=== PATIENT | male | born 1995 | race Hispanic/Latino ===

== ENCOUNTER 2022-05-15 18:35 | Emergency (ER) | payer BC ==
[~2022-05-15] VITALS: Ht 177.8 cm; Wt 93.0 kg
[2022-05-15] MEDS ORDERED: ONDANSETRON HCL INJ 2MG/ML 2ML 2 MG/ML VIAL IV STA (19:00)
[2022-05-15] MEDS ORDERED: SODIUM CHLORIDE 0.9% 1000ML 1,000 ML IV ONE (19:00)
[2022-05-15 19:11] LABS: BASOPHILS % 0.1 % (0.0-1.0); EOSINOPHILS % 0.4 % (0.0-6.0); HEMATOCRIT 49.9 % (38.2-49.6); HEMOGLOBIN 16.8 g/dL (14.0-18.0); LYMPHOCYTES # (AUTO) 0.3 (1.0-3.2); LYMPHOCYTES % 3.1 % (18.0-39.1); MEAN CORPUSCULAR HEMOGLOBIN 29.4 pg (28-32); MEAN CORPUSCULAR HGB CONC 33.7 g/dL (31-35); MEAN CORPUSCULAR VOLUME 87.2 fL (81-99); MONOCYTES # (AUTO) 0.5 (0.2-0.8); MONOCYTES % 5.8 % (4.4-11.3); NEUTROPHILS # (AUTO) 7.3 (2.1-6.9); NEUTROPHILS % 90.4 % (38.7-80.0); PLATELET COUNT 240 x10e3/uL (140-360); RED BLOOD COUNT 5.72 x10e6/uL (4.3-5.7); RED CELL DISTRIBUTION WIDTH 12.1 % (11.7-14.4)
[2022-05-15 19:30] LABS: ALBUMIN 4.1 g/dL (3.5-5.0); ALBUMIN/GLOBULIN RATIO 1.1 (0.8-2.0); ANION GAP 13.2 mmol/L (8-16); CALCIUM 9.1 mg/dL (8.4-10.2); CREATININE, SERUM 1.12 mg/dL (0.72-1.25); POTASSIUM 4.2 mmol/L (3.5-5.1)
[2022-05-15] MEDS ORDERED: DICYCLOMINE HCL20 MG PO (20:57)
[2022-05-15] MEDS ORDERED: ONDANSETRON ODT4 MG PO (20:57)
[2022-05-15 20:58] LABS: CLARITY,URINE SL CLOUDY (CLEAR); COLOR,URINE AMBER (YELLOW); LEUKOCYTE ESTERASE ,URINE NEGATIVE (NEGATIVE); NITRITE,URINE NEGATIVE (NEGATIVE); PROTEIN,URINE DIPSTICK NEGATIVE (NEGATIVE)
[2022-05-15 20:59] LABS: KETONES,URINE TRACE (NEGATIVE); URINE UROBILINOGEN 0.2 mg/dL (0.2 - 1)
[2022-05-15 21:07] LABS: BACTERIA,URINE FEW /HPF; MUCUS,URINE MANY (RARE)
[2022-05-15 21:26] VITALS: BP 112/69
== END 2022-05-15 21:28 | disposition home or self-care (01) ==
LOC: ER 18:57
DX: R11.2 Nausea with vomiting, unspecified (principal); A08.4 Viral intestinal infection, unspecified; R55 Syncope and collapse; Z20.822 Contact with and (suspected) exposure to COVID-19
CPT/HCPCS: 36415; 70450; 74177; 80053; 81001; 83690; 85025; 87400; 99284; J2405; J7030; U0002

== ENCOUNTER 2024-10-27 18:56 | Emergency (ER) | payer BC ==
[~2024-10-27] VITALS: Ht 177.8 cm; Wt 104.3 kg
[~2024-10-27 18:56] MED LIST: DICYCLOMINE HCL20 MG PO; ONDANSETRON ODT4 MG PO
[2024-10-27 19:32] VITALS: PULSE 78; RESP 16; TEMP 98.6; O2SAT 98
[2024-10-27] MEDS ORDERED: EYE IRRIGATION (OPTH) 120 ML BTL ONE (19:33)
[2024-10-27] MEDS: TETRACAINE HCL 0.5% OPTH SOLN 4 ML BTL OP ONE (19:39)
[2024-10-27] MEDS: FLUORESCEIN SOD(OPTH) 1 MG STRP OP ONE (19:39)
[2024-10-27] MEDS ORDERED: KETOROLAC TROME10 MG PO (19:44)
[2024-10-27] MEDS ORDERED: AUGMENTIN 500-1 EACH PO (19:44)
== END 2024-10-27 19:48 | disposition home or self-care (01) ==
LOC: ER 19:22
DX: H10.9 Unspecified conjunctivitis (principal); R05.9 Cough, unspecified
CPT/HCPCS: 99284